=== PATIENT | female | born 1990 | race Caucasian/White ===

== ENCOUNTER → 2017-04-01 | Outpatient (REF) | payer OTHER, BC ==
[~2017-04-01] MED LIST: ACET50TA PO; IBUP80TA PO; NORCOTAB PO; PRENTAB55 PO; ZOFR4TAB3 PO
== END ==
LOC: M LAB REF 20:23
PROVIDERS: ATTEND Physician Assistant
DX: R39.15 Urgency of urination (principal)

== ENCOUNTER 2017-04-03 15:25 | Emergency (ER) | payer BC, OTHER ==
[~2017-04-03] VITALS: Ht 167.6 cm; Wt 70.5 kg
[~2017-04-03 15:25] MED LIST changes: -NORCOTAB PO; -ZOFR4TAB3 PO
[2017-04-03] MEDS ORDERED: NS 1,000 ML IV SCH (16:11)
[2017-04-03] MEDS ORDERED: KETOROLAC 30 MG/ML VIAL (J1885) IV ONE (16:15)
[2017-04-03] MEDS ORDERED: ONDANSETRON 4MG/2ML VIAL (J2405) IV ONE (16:15)
[2017-04-03 16:42] LABS: BASO % 0.4 % (0.0-1.0); EOS # 0.1 K/mm3 (0.0-0.50); EOS % 0.9 % (0.0-3.0); LARGE UNSTAINED CELL # 0.2 K/mm3 (0.0-0.4); LARGE UNSTAINED CELL % 2.4 % (0.0-4.0); LYMPH # 2.1 K/mm3 (1.5-6.5); LYMPH % 20.9 % (24.0-44.0); MEAN CORPUSCULAR HEMOGLOBIN 31.7 pg (27.0-33.0); MEAN CORPUSCULAR HGB CONC 35.1 g/dl (32.0-36.5); MEAN CORPUSCULAR VOLUME 90.3 fl (80.0-96.0); MONO # 0.5 K/mm3 (0.0-0.8); MONO % 5.1 % (0.0-5.0); NEUTROPHILS # 7.1 K/mm3 (1.8-7.7); NEUTROPHILS % 70.2 % (36.0-66.0); PLATELET COUNT, AUTOMATED 280 k/mm3 (150-450); RED CELL DISTRIBUTION WIDTH 12.5 % (11.5-14.5); WHITE BLOOD COUNT 10.1 K/mm3 (4.0-10.0)
[2017-04-03 16:52] LABS: CONTROL LINE HCG INT CTR LINE PRESENT
[2017-04-03 17:01] LABS: ALBUMIN 4.5 GM/DL (3.2-5.2); ALBUMIN/GLOBULIN RATIO 1.41 (1.00-1.93); ALKALINE PHOSPHATASE 81 U/L (45-117); ALT/SGPT 23 U/L (12-78); ANION GAP 9 MEQ/L (8-16); AST/SGOT 13 U/L (15-37); BILIRUBIN,DIRECT 0.2 MG/DL (0.0-0.2); BILIRUBIN,TOTAL 0.6 MG/DL (0.2-1.0); BLOOD UREA NITROGEN 9 MG/DL (7-18); CARBON DIOXIDE LEVEL 28 MEQ/L (21-32); CHLORIDE LEVEL 105 MEQ/L (98-107); CREATININE FOR GFR 0.64 MG/DL (0.55-1.02); GLOMERULAR FILTRATION RATE > 60.0 (>60); GLUCOSE, FASTING 85 MG/DL (70-105); POTASSIUM SERUM 3.9 MEQ/L (3.5-5.1); SODIUM LEVEL 142 MEQ/L (136-145); TOTAL PROTEIN 7.7 GM/DL (6.4-8.2)
--- NOTE | 2017-04-03 17:51 | REP ---
CT abdomen pelvis without IV or bowel contrast for renal obstruction: There are no comparison studies. The visualized lung askew are unremarkable. There are no renal calculi. There is no hydronephrosis. There are no ureteral calculi. There is a 5.1 cm left adnexal cyst. The right adnexa is unremarkable. The uterus is unremarkable. The unenhanced hepatic parenchyma, gallbladder, pancreas, spleen, adrenals, kidneys, abdominal aorta, bowel and mesentery are unremarkable. Pelvis: There is no ascites or adenopathy. The uterus, adnexa are unremarkable except for the 5.1 cm left adnexal cyst. The pelvic bowel loops are unremarkable. Impression: 5.1 cm left adnexal cyst. No renal or ureteral calculi. No hydronephrosis. Otherwise, negative CT of the abdomen and pelvis. Signed by Magan Rao MD 04/03/2017 05:42 P
[2017-04-03] MEDS ORDERED: ZOFR4TAB3 PO (18:03)
[2017-04-03] MEDS ORDERED: NORCOTAB PO (18:03)
[2017-04-03 18:11] VITALS: BP 122/70
== END 2017-04-03 18:11 | disposition home or self-care (01) ==
LOC: M ED 15:25
DX: N20.1 Calculus of ureter (principal); N83.202 Unspecified ovarian cyst, left side
CPT/HCPCS: 74176; 80048; 80076; 81001; 83690; 84703; 85025; 87086; 96374; 96375; 99283; J1885; J2405

== ENCOUNTER → 2017-04-10 | Outpatient (REF) | payer OTHER ==
[~2017-04-10] MED LIST changes: +NORCOTAB PO; +ZOFR4TAB3 PO
== END ==
LOC: M LAB REF 17:00
PROVIDERS: ATTEND Advanced Practice Midwife
DX: N92.6 Irregular menstruation, unspecified (principal)

== ENCOUNTER → 2017-04-15 | Outpatient (CLI) | payer OTHER ==
--- NOTE | 2017-04-16 07:06 | REP ---
Clinical: Follow-up cyst. Abnormal uterine bleeding. Technique: Transabdominal pelvic ultrasound followed by transvaginal examination for better evaluation of the endometrium and adnexa with color Doppler evaluation of the ovaries. Findings: Bladder is unremarkable and measures 9.7 x 5.1 x 10.6 cm . Normal anteverted uterus measures 6.6 x 3.3 x 4.3 cm . The endometrial complex measures 10.0 mm thickness. No discrete uterine or endometrial abnormalities are appreciated. Bilateral ovaries are normal in appearance and vascularity without evidence for torsion. Right ovary measures 2.9 x 1.4 x 3.9 cm ; R I = 0.62 . Left ovary measures 5.2 x 4.6 x 3.6 cm with 3.8 cm simple cyst ; R I = 0.56 . No pelvic fluid or adnexal mass lesion . Impression: 1. 3.8 cm left ovarian cyst likely physiologic. Consider reevaluation in 4-6 weeks to evaluate for resolution. Signed by Thee Smart MD 04/16/2017 06:57 A
== END ==
LOC: M RAD 16:33
PROVIDERS: ATTEND Advanced Practice Midwife
DX: N83.209 Unspecified ovarian cyst, unspecified side (principal); N92.5 Other specified irregular menstruation

== ENCOUNTER → 2017-04-22 | Outpatient (REF) | payer OTHER | LOC: M LAB REF 13:14 | PROVIDERS: ATTEND Obstetrics & Gynecology | DX: N87.1 Moderate cervical dysplasia (principal) ==

== ENCOUNTER → 2017-06-24 | Outpatient (CLI) | payer OTHER ==
--- NOTE | 2017-06-25 05:39 | REP ---
Clinical: Follow-up left ovarian cyst. Comparison: 04/15/2017 . Technique: Transabdominal pelvic ultrasound followed by transvaginal examination for better evaluation of the endometrium and adnexa with color Doppler evaluation of the ovaries. Findings: Bladder is unremarkable and measures 9.3 x 5.3 x 3.7 centimeters . Normal anteverted uterus measures 7.1 x 3.5 x 4.0 cm . The endometrial complex measures 8.0 mm thickness. No discrete uterine or endometrial abnormalities are appreciated. Bilateral ovaries are normal in appearance and vascularity without evidence for torsion. Right ovary measures 3.1 x 3.6 x 2.8 cm ; R I = 0.52 . Left ovary measures 3.3 x 2.0 x 1.7 cm ; R I = 0.49 . No pelvic fluid or adnexal mass lesions . Impression: 1. normal pelvic ultrasound. Previously noted left ovarian cyst resolved. Signed by Thee Smart MD 06/25/2017 05:30 A
== END ==
LOC: M RAD 15:47
PROVIDERS: ATTEND Obstetrics & Gynecology
DX: N83.202 Unspecified ovarian cyst, left side (principal)

== ENCOUNTER → 2017-10-31 | Outpatient (CLI) | payer OTHER | LOC: M WHC 10:47 | DX: N94.6 Dysmenorrhea, unspecified (principal); N92.0 Excessive and frequent menstruation with regular cycle; N83.8 Other noninflammatory disorders of ovary, fallopian tube and broad ligament | CPT/HCPCS: 76830 ==

== ENCOUNTER → 2017-12-05 | Outpatient (REF) | payer OTHER | LOC: M SFHCWAGY 17:29 | DX: B37.3 Candidiasis of vulva and vagina (principal) ==

== ENCOUNTER → 2017-12-15 | Outpatient (CLI) | payer OTHER | LOC: M ADAMS 15:43 | DX: S00.33XA Contusion of nose, initial encounter (principal); X58.XXXA Exposure to other specified factors, initial encounter; Y92.9 Unspecified place or not applicable | CPT/HCPCS: 70160 ==

== ENCOUNTER → 2017-12-25 | Outpatient (REF) | payer OTHER ==
[2017-12-25 20:15] LABS: CHLAMYDIA DNA AMPLIFICATION NEGATIVE (NEGATIVE); GC DNA AMPLIFICATION NEGATIVE (NEGATIVE)
== END ==
LOC: M SFHCWAGY 16:50
DX: Z11.3 Encounter for screening for infections with a predominantly sexual mode of transmission (principal)

== ENCOUNTER → 2018-06-25 | Outpatient (REF) | payer OTHER ==
[2018-06-28 14:13] LABS: HPV HYBRID CAPTURE II Negative (Negative)
== END ==
LOC: M SFHCWAGY 13:15
DX: Z12.4 Encounter for screening for malignant neoplasm of cervix (principal); R87.612 Low grade squamous intraepithelial lesion on cytologic smear of cervix (LGSIL)
CPT/HCPCS: G0123

== ENCOUNTER → 2018-07-07 | Outpatient (REF) | payer OTHER ==
[~2018-07-07] MED LIST changes: -ACET50TA PO; +MAPA500T17 PO; +ZOFR4TAB14 PO; -ZOFR4TAB3 PO
[2018-07-07 21:33] LABS: CHLAMYDIA DNA AMPLIFICATION NEGATIVE (NEGATIVE); GC DNA AMPLIFICATION NEGATIVE (NEGATIVE)
== END ==
LOC: M SFHCWAGY 14:23
PROVIDERS: ATTEND Nurse Practitioner Women's Health
DX: R87.612 Low grade squamous intraepithelial lesion on cytologic smear of cervix (LGSIL) (principal)

== ENCOUNTER → 2018-07-25 | Outpatient (REF) | payer OTHER ==
[~2018-07-25] MED LIST changes: -MAPA500T17 PO; +MAPA500T2 PO
[2018-07-25 21:25] LABS: CHLAMYDIA DNA AMPLIFICATION NEGATIVE (NEGATIVE); GC DNA AMPLIFICATION NEGATIVE (NEGATIVE)
== END ==
LOC: M LAB REF 12:44
PROVIDERS: ATTEND Physician Assistant Medical
DX: N76.0 Acute vaginitis (principal)

== ENCOUNTER → 2018-12-31 | Outpatient (REF) | payer OTHER ==
[~2018-12-31] MED LIST changes: +HYDR-3715 PO; -NORCOTAB PO
[2018-12-31 21:37] LABS: CHLAMYDIA DNA AMPLIFICATION NEGATIVE (NEGATIVE); GC DNA AMPLIFICATION NEGATIVE (NEGATIVE)
== END ==
LOC: M SFHCWAGY 17:01
PROVIDERS: ATTEND Nurse Practitioner Women's Health
DX: Z11.3 Encounter for screening for infections with a predominantly sexual mode of transmission (principal)

== ENCOUNTER → 2019-01-06 | Outpatient (CLI) | payer OTHER ==
--- NOTE | 2019-01-06 19:00 | REP ---
PELVIC ULTRASOUND: Real-time sonographic evaluation of the pelvis was performed utilizing transabdominal and endovaginal technique. COMPARISON: 10/31/2017. The bladder measures 12.0 x 11.4 x 8.1 cm. The uterus measures 8.7 x 3.6 x 5.5 cm. Endometrial thickness is 5 mm. Right ovary measures 2.8 x 2.2 x 3.7 cm with a dominant follicle in the right ovary 1.8 cm in diameter. Left ovary measures 3.4 x 2.1 x 3.1 cm. Two complex follicles in the left ovary measure 2.3 x 0.9 x 1.9 cm and 0.8 x 0.7 x 0.9 cm. There is a 1.1 cm paraovarian cyst. There is no torsin bilaterally, RI right ovary is 0.50 and left ovary 0.53. No free fluid is seen. IMPRESSION: Simple dominant follicle right ovary. Two complex follicles left ovary with a 1.1 cm left paraovarian cyst.
== END ==
LOC: M WHC 15:20
PROVIDERS: ATTEND Nurse Practitioner Women's Health
DX: N83.291 Other ovarian cyst, right side (principal); N83.292 Other ovarian cyst, left side; Z87.42 Personal history of other diseases of the female genital tract; N92.6 Irregular menstruation, unspecified

== ENCOUNTER → 2019-01-07 | Outpatient (REF) | payer OTHER | LOC: M SFHCWAGY 17:05 | PROVIDERS: ATTEND Nurse Practitioner Women's Health | DX: N89.8 Other specified noninflammatory disorders of vagina (principal) ==

== ENCOUNTER 2019-01-18 13:36 | Emergency (ER) | payer OTHER ==
[~2019-01-18] VITALS: Ht 167.6 cm; Wt 59.1 kg
[2019-01-18] MEDS ORDERED: NS 1,000 ML IV ONE (14:00)
[2019-01-18 14:14] LABS: BASO # 0.1 10^3/uL (0.0-0.2); BASO % 0.6 % (0.0-1.0); EOS # 0.1 10^3/uL (0.0-0.50); EOS % 1.6 % (0.0-3.0); HEMATOCRIT 39.9 % (36.0-47.0); HEMOGLOBIN 13.6 g/dl (12.0-15.5); LYMPH # 2.5 10^3/uL (1.5-6.5); LYMPH % 28.7 % (24.0-44.0); MEAN CORPUSCULAR HEMOGLOBIN 31.9 pg (27.0-33.0); MEAN CORPUSCULAR HGB CONC 34.1 g/dl (32.0-36.5); MEAN CORPUSCULAR VOLUME 93.4 fl (80.0-96.0); MONO # 0.8 10^3/uL (0.0-0.8); MONO % 9.3 % (0.0-5.0); NEUTROPHILS # 5.3 10^3/uL (1.8-7.7); NEUTROPHILS % 59.6 % (36.0-66.0); PLATELET COUNT, AUTOMATED 239 10^3/uL (150-450); RED BLOOD COUNT 4.27 10^6/uL (4.00-5.40); WHITE BLOOD COUNT 8.8 10^3/uL (4.0-10.0)
--- NOTE | 2019-01-18 14:23 | REP ---
Clinical: Left flank pain. Technique: Axial noncontrast images from the lung bases to the pubic symphysis with coronal and sagittal re-formations. Findings: Lung bases are clear. Liver, spleen, pancreas, gallbladder, bilateral adrenal glands and kidneys are normal for noncontrast evaluation. Moderate fecal stasis is suggested and possibly related to patient's symptoms. No bowel obstruction or obvious acute focal inflammatory process. Pelvis demonstrates normal bladder and age-appropriate uterus/adnexa. No ascites. No free air. No obvious adenopathy. Abdominal aorta without aneurysm. Musculoskeletal structures are intact. Impression: 1. Moderate fecal stasis possibly related to patient's symptoms. 2. Otherwise normal CT of the abdomen and pelvis. Electronically Signed by Thee Smart MD 01/18/2019 02:15 P
[2019-01-18 14:35] LABS: ALBUMIN 3.9 GM/DL (3.2-5.2); ALT/SGPT 32 U/L (12-78); BILIRUBIN,DIRECT 0.1 MG/DL (0.0-0.2); BILIRUBIN,TOTAL 0.5 MG/DL (0.2-1.0); BLOOD UREA NITROGEN 13 MG/DL (7-18); CALCIUM LEVEL 8.2 MG/DL (8.5-10.1); CARBON DIOXIDE LEVEL 26 MEQ/L (21-32); CHLORIDE LEVEL 107 MEQ/L (98-107); CREATININE FOR GFR 0.73 MG/DL (0.55-1.30); GLOMERULAR FILTRATION RATE > 60.0 (>60); GLUCOSE, FASTING 93 MG/DL (70-100); LIPASE 204 U/L (73-393); POTASSIUM SERUM 3.9 MEQ/L (3.5-5.1); SODIUM LEVEL 140 MEQ/L (136-145); TOTAL PROTEIN 6.9 GM/DL (6.4-8.2)
[2019-01-18 15:06] VITALS: BP 112/63
== END 2019-01-18 15:13 | disposition home or self-care (01) ==
LOC: M ED 13:36
DX: K59.00 Constipation, unspecified (principal)

== ENCOUNTER → 2019-04-19 | Outpatient (CLI) | payer OTHER ==
--- NOTE | 2019-04-20 09:44 | REP ---
RIGHT FOOT COMPLETE: 04/19/2019. Clinical history. Right foot pain. Findings: Four views are provided. That portion of distal tibia and fibula seen showed no fracture. Talonavicular and calcaneocuboid joints were normal. The talus and calcaneus show no fracture. Subtalar joints intact. Tarsal bones and their articulations, metatarsals and phalanges are all intact. IP and MTP joints were unremarkable. Lateral view shows a normal angle of the arch. Impression: 1. Negative right foot series for any acute finding. Electronically Signed by Gregorio Lind MD 04/20/2019 10:07 A
== END ==
LOC: M ADAMS 12:24
PROVIDERS: ATTEND Physician Assistant
DX: M79.671 Pain in right foot (principal)

== ENCOUNTER → 2019-06-30 | Outpatient (REF) | payer OTHER | LOC: M PLALAB 11:34 | PROVIDERS: ATTEND Nurse Practitioner Women's Health | DX: Z12.4 Encounter for screening for malignant neoplasm of cervix (principal); R87.612 Low grade squamous intraepithelial lesion on cytologic smear of cervix (LGSIL) | CPT/HCPCS: 87624; G0123 ==

== ENCOUNTER 2021-03-16 15:29 | Emergency (ER) | payer OTHER ==
[~2021-03-16] VITALS: Ht 167.6 cm; Wt 61.8 kg
[2021-03-16 15:30] VITALS: BP 123/62
== END 2021-03-16 17:24 | disposition left against medical advice (07) ==
LOC: M ED 15:29
DX: Z53.21 Procedure and treatment not carried out due to patient leaving prior to being seen by health care provider (principal)

== ENCOUNTER → 2021-05-03 | Outpatient (CLI) | payer OTHER ==
[2021-05-03 11:50] LABS: HEMATOCRIT 40.2 % (36.0-47.0); HEMOGLOBIN 13.4 g/dl (12.0-15.5); MEAN CORPUSCULAR HEMOGLOBIN 32.8 pg (27.0-33.0); MEAN CORPUSCULAR HGB CONC 33.3 g/dl (32.0-36.5); MEAN CORPUSCULAR VOLUME 98.3 fl (80.0-96.0); PLATELET COUNT, AUTOMATED 226 10^3/uL (150-450); RED BLOOD COUNT 4.09 10^6/uL (4.00-5.40); WHITE BLOOD COUNT 6.1 10^3/uL (4.0-10.0)
[2021-05-03 12:20] LABS: ALBUMIN 3.9 GM/DL (3.2-5.2); ALT/SGPT 37 U/L (12-78); BILIRUBIN,TOTAL 0.7 MG/DL (0.2-1.0); BLOOD UREA NITROGEN 12 MG/DL (7-18); CALCIUM LEVEL 8.7 MG/DL (8.5-10.1); CARBON DIOXIDE LEVEL 29 MEQ/L (21-32); CHLORIDE LEVEL 106 MEQ/L (98-107); CREATININE FOR GFR 0.67 MG/DL (0.55-1.30); GLOMERULAR FILTRATION RATE > 60.0 (>60); GLUCOSE, FASTING 79 MG/DL (70-100); POTASSIUM SERUM 3.7 MEQ/L (3.5-5.1); SODIUM LEVEL 141 MEQ/L (136-145); TOTAL PROTEIN 6.5 GM/DL (6.4-8.2)
== END ==
LOC: M WUC 09:04
PROVIDERS: ATTEND Student in an Organized Health Care Education/Training Program
DX: N92.0 Excessive and frequent menstruation with regular cycle (principal); F41.8 Other specified anxiety disorders

== ENCOUNTER → 2021-09-20 | Outpatient (REF) | payer OTHER | LOC: M PLALAB 11:32 | PROVIDERS: ATTEND Specialist | DX: Z12.4 Encounter for screening for malignant neoplasm of cervix (principal); R87.810 Cervical high risk human papillomavirus (HPV) DNA test positive | CPT/HCPCS: 87624; G0123 ==

== ENCOUNTER 2022-07-29 13:14 | Emergency (ER) | payer OTHER ==
[~2022-07-29] VITALS: Ht 167.6 cm; Wt 68.0 kg
[2022-07-29 13:14] VITALS: BP 126/63
[~2022-07-29 13:14] MED LIST changes: +RALTEGRAVIR 400 MG TAB (ISENTRESS) PO SCH; +TRUVADA 200MG/300MG TABLET PO SCH
[2022-07-29 13:56] LABS: BASO % 0.6 % (0.0-1.0); EOS # 0.1 10^3/uL (0.0-0.5); EOS % 0.8 % (0.0-3.0); HEMATOCRIT 38.4 % (36.0-47.0); HEMOGLOBIN 13.1 g/dl (12.0-15.5); LYMPH # 1.4 10^3/uL (1.5-5.0); LYMPH % 18.9 % (24.0-44.0); MEAN CORPUSCULAR HEMOGLOBIN 32.7 pg (27.0-33.0); MEAN CORPUSCULAR HGB CONC 34.1 g/dl (32.0-36.5); MEAN CORPUSCULAR VOLUME 95.8 fl (80.0-96.0); MONO # 0.6 10^3/uL (0.0-0.8); MONO % 8.3 % (2.0-8.0); NEUTROPHILS # 5.2 10^3/uL (1.5-8.5); PLATELET COUNT, AUTOMATED 232 10^3/uL (150-450); RED BLOOD COUNT 4.01 10^6/uL (4.00-5.40); WHITE BLOOD COUNT 7.3 10^3/uL (4.0-10.0)
[2022-07-29 14:24] LABS: ALBUMIN 4.4 G/DL (3.2-5.2); ALKALINE PHOSPHATASE 66 U/L (46-116); ALT/SGPT 31 U/L (7.0-40); AST/SGOT 28 U/L (<34); BILIRUBIN,TOTAL 0.4 MG/DL (0.3-1.2); BLOOD UREA NITROGEN 13 MG/DL (9-23); CALCIUM LEVEL 9.3 MG/DL (8.5-10.1); CARBON DIOXIDE LEVEL 30 MMOL/L (20-31); CHLORIDE LEVEL 103 MMOL/L (98-107); CREATININE FOR GFR 0.83 MG/DL (0.55-1.30); GLOMERULAR FILTRATION RATE > 60.0 (>60); GLUCOSE, FASTING 109 MG/DL (60-100); POTASSIUM SERUM 3.9 MMOL/L (3.5-5.1); SODIUM LEVEL 140 MMOL/L (136-145)
[2022-07-29 14:31] LABS: HEPATITIS B SURFACE ANTIBODY POSITIVE (POSITIVE)
[2022-07-29 14:44] LABS: HEPATITIS B SURFACE ANTIGEN NEGATIVE (NEGATIVE)
[2022-07-29 14:56] LABS: HIV 1&2 SCREEN CENTAUR NEGATIVE (NEGATIVE)
[2022-07-29 15:04] LABS: HEPATITIS C VIRUS ABY INDEX 0.1 INDEX (<0.8)
[2022-07-29 15:56] LABS: HCG, SERUM QUALITATIVE NEGATIVE (NEGATIVE)
[2022-07-29] MEDS ORDERED: EXPOSURE KIT-ADULT 7 DAY SUPPLY PO ONE (16:25)
[2022-07-29] MEDS ORDERED: RALT40TA PO (16:26)
[2022-07-29] MEDS ORDERED: EMTR1TAB16 PO (16:26)
[2022-07-29] MEDS ORDERED: RALTEGRAVIR 400 MG TAB (ISENTRESS) PO ONE (17:00)
[2022-07-29] MEDS ORDERED: TRUVADA 200MG/300MG TABLET PO ONE (17:00)
== END 2022-07-29 17:19 | disposition home or self-care (01) ==
LOC: M ED 13:14
DX: Z77.21 Contact with and (suspected) exposure to potentially hazardous body fluids (principal); Y99.0 Civilian activity done for income or pay; Y92.149 Unspecified place in prison as the place of occurrence of the external cause

== ENCOUNTER → 2024-03-05 | Outpatient (REF) | payer OTHER ==
[~2024-03-05] MED LIST changes: +EMTR1TAB16 PO; +RALT40TA PO; -RALTEGRAVIR 400 MG TAB (ISENTRESS) PO SCH; -TRUVADA 200MG/300MG TABLET PO SCH
[2024-03-10 12:26] LABS: HPV APTIMA Not Detected (Not Detected)
== END ==
LOC: M LAB REF 17:01
PROVIDERS: ATTEND Registered Nurse
DX: Z01.419 Encounter for gynecological examination (general) (routine) without abnormal findings (principal)

== ENCOUNTER → 2024-03-06 | Outpatient (CLI) | payer OTHER ==
[2024-03-06 15:58] LABS: ALBUMIN 4.5 G/DL (3.2-5.2); ALKALINE PHOSPHATASE 60 U/L (46-116); ALT/SGPT 26 U/L (7.0-40); AST/SGOT 21 U/L (<34); BILIRUBIN,TOTAL 0.8 MG/DL (0.3-1.2); BLOOD UREA NITROGEN 12 MG/DL (9-23); CALCIUM LEVEL 9.4 MG/DL (8.5-10.1); CARBON DIOXIDE LEVEL 29 MMOL/L (20-31); CHLORIDE LEVEL 104 MMOL/L (98-107); GLOMERULAR FILTRATION RATE > 60.0 (>60); GLUCOSE, FASTING 104 MG/DL (60-100); IRON (FE) 142 UG/DL (50-170); MAGNESIUM LEVEL 1.9 MG/DL (1.8-2.4); PERCENT SATURATION 44.9 % (13.2-45.0); POTASSIUM SERUM 3.8 MMOL/L (3.5-5.1); SODIUM LEVEL 137 MMOL/L (136-145); TOTAL IRON BINDING CAPACITY 316 UG/DL (250-425); TOTAL PROTEIN 7.1 G/DL (5.7-8.2)
[2024-03-06 15:59] LABS: BASO % 0.6 % (0.0-1.0); EOS # 0.1 10^3/uL (0.0-0.5); EOS % 1.3 % (0.0-3.0); HEMATOCRIT 41.1 % (36.0-47.0); HEMOGLOBIN 13.9 g/dl (12.0-15.5); LYMPH # 1.6 10^3/uL (1.5-5.0); LYMPH % 22.5 % (24.0-44.0); MEAN CORPUSCULAR HGB CONC 33.8 g/dl (32.0-36.5); MEAN CORPUSCULAR VOLUME 94.5 fl (80.0-96.0); MONO # 0.5 10^3/uL (0.0-0.8); MONO % 7.3 % (2.0-8.0); NEUTROPHILS # 4.8 10^3/uL (1.5-8.5); NEUTROPHILS % 68.2 % (36.0-66.0); PLATELET COUNT, AUTOMATED 234 10^3/uL (150-450); RED BLOOD COUNT 4.35 10^6/uL (4.00-5.40); TOTAL 25(OH) VITAMIN D 50.7 NG/ML (20.0-100.0); VITAMIN B12 LEVEL 581 PG/ML (211-911)
[2024-03-06 16:00] LABS: FERRITIN 61.6 NG/ML (7.3-270.7); FREE T4 1.14 NG/DL (0.89-1.76); THYROID STIMULATING HORMONE 1.669 uIU/ML (0.55-4.78)
[2024-03-06 16:01] LABS: FOLATE > 24.00 NG/ML (>5.4)
[2024-03-06 16:12] LABS: HEMOGLOBIN A1c 4.7 % (4.0-6.0)
== END ==
LOC: M PLALAB 13:36
PROVIDERS: ATTEND Registered Nurse
DX: R42 Dizziness and giddiness (principal)

== ENCOUNTER → 2024-08-21 | Outpatient (CLI) | payer OTHER | LOC: M PLARAD 08:48 | PROVIDERS: ATTEND Registered Nurse | DX: R51.9 Headache, unspecified (principal); H53.8 Other visual disturbances ==

== ENCOUNTER → 2024-10-15 | Outpatient (CLI) | payer OTHER | LOC: M PLALAB 16:18 | PROVIDERS: ATTEND Registered Nurse | DX: H53.8 Other visual disturbances (principal) ==